=== PATIENT | male | born 1990 ===

== ENCOUNTER 2020-07-19 10:07 | Emergency (ER) | payer BC, OTHER ==
--- NOTE | 2020-07-19 10:09 | EDM.PDOC ---
ED HPI GENERAL MEDICAL PROBLEM - General Chief Complaint: Upper Extremity Injury/Pain Stated Complaint: Finger Crush Injury Time Seen by Provider: 07/19/20 10:09 Source of Information: Reports: Patient, Old Records (No [facility] records available) History Limitations: Reports: No Limitations - History of Present Illness INITIAL COMMENTS - FREE TEXT/NARRATIVE: The patient was brought to the emergency room via transport vehicle from [facility] for evaluation of a Workmen's Compensation injury, which occurred at about 9:30 AM this morning. He was working with a metal frame weighing about 90 pounds, which landed lightly on his right ring finger resulting in a small laceration and crush injury. The patient is right-handed and has not injured this finger in the past. The finger and laceration site were rinsed with tap water with dressing placed, however no other medications or treatment prior to arrival. The patient denies any chest pain/pressure, heart flutter, dizziness, orthostasis, orthopnea, diaphoresis, paresthesias, recent decreased exercise tolerance, or any other anginal-type symptoms. No recent history of abdominal pain, heartburn, nausea, diarrhea, melena, gross hematochezia, or any food intolerance, including fatty foods, etc.. The patient also denies any recent fever, cough, wheezing, dyspnea, etc.. Onset: Today, Sudden Onset Date: 07/19/20 Onset Time: 09:30 Duration: Constant Location: Reports: Upper Extremity, Right. Denies: Head, Face, Neck, Chest, Abdomen, Back, Pelvis, Upper Extremity, Left, Radiates to Quality: Reports: Same as Previous Episode, Throbbing Severity: Moderate Improves with: Reports: None Worsens with: Reports: None Context: Reports: Trauma (As above). 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 [No Known Home Meds] 07/19/20 [History] Past Medical History - Past Health History Medical/Surgical History: Denies Medical/Surgical History Cardiovascular History: Denies: Hypertension Social & Family History - Tobacco Use Tobacco Use Status *Q: Current Every Day Tobacco User Tobacco Use Within Last Twelve Months: Snuff/Dip Years of Tobacco use: 4 Packs/Tins Daily: 0.5 Used Tobacco, but Quit: No Smoking Cessation Information Provided To Patient: Yes Second Hand Smoke Exposure: Yes Source of Second Hand Smoke Exposure: Roommates use tobacco Second Hand Smoke Education Provided: Yes - Living Situation & Occupation Living situation: Reports: Single (No children), Other (Roommates) Occupation: Employed ([employer]) Review of Systems - Review of Systems Review Of Systems: Comprehensive ROS is negative, except as noted in HPI. ED EXAM, GENERAL - Physical Exam Exam: See Below Exam Limited By: No Limitations General Appearance: Alert, WD/WN, No Apparent Distress Head: Atraumatic, Normocephalic Neck: Normal Inspection, Supple, Non-Tender, Full Range of Motion. No: Lymphadenopathy (L), Lymphadenopathy (R), Thyromegaly Respiratory/Chest: No Respiratory Distress, Lungs Clear, Normal Breath Sounds, No Accessory Muscle Use, Chest Non-Tender. No: Pleural Rub, Retractions Cardiovascular: Normal Peripheral Pulses, Regular Rate, Rhythm, No Edema, No Gallop, No JVD, No Murmur, No Rub. No: Gallop/S3, Gallop/S4, Friction Rub Peripheral Pulses: 2+: Radial (L), Radial (R) GI/Abdominal: Normal Bowel Sounds, Soft, Non-Tender, No Organomegaly, No Distention, No Abnormal Bruit, No Mass, Pelvis Stable. No: Guarding (Male) Exam: Deferred Rectal (Males) Exam: Deferred Back Exam: Normal Inspection, Full Range of Motion. No: CVA Tenderness (L), CVA Tenderness (R), Muscle Spasm Extremities: Normal Range of Motion, No Pedal Edema, Normal Capillary Refill, Other (Small 0.5 cm superficial laceration secondary to crush injury over the palmar distal aspect of digit #4 right hand with no foreign body and not needing laceration repair). No: Non-Tender (Mild tenderness/palpation pain and swelling with additional mild ecchymosis over the distal phalanx of digit #4 of the right hand, including some nail involvement, however no significant subungual hematoma, crepitation, deformity, or evidence of fracture. No signif icant joint involvement. ), Pedal Edema, Joint Swelling, Kyle's Sign Neurological: Alert, Oriented, CN II-XII Intact, Normal Cognition, Normal Gait, No Motor/Sensory Deficits Psychiatric: Normal Affect, Normal Mood Skin Exam: Normal Color, No Rash, Ecchymosis (As above), Wound/Incision (As above). No: Diaphoretic Lymphatic: No Adenopathy ED TRAUMA EXTREMITY PROCEDURES - Splinting Right 4th Digit Splint Site: Digit #4 of the right hand Pre-Procedure NV Status: Normal Post-Procedure NV Status: Normal Splint Material: Aluminum-Foam (3 hole padded flexor/extensor premade finger splint) Splint Design: Other (As above) Applied & Form Fitted By: Nurse Provider Post-Splint Application NV Check: NV Status Normal, Good Position Complications: No Course - Vital Signs Last Recorded V/S: Last Vital Signs Temp 36.2 C 07/19/20 10:15 Pulse 98 07/19/20 10:15 Resp 18 07/19/20 10:15 BP 148/92 H 07/19/20 10:15 Pulse Ox 98 07/19/20 10:15 Vital Signs - 24 hr 07/19/20 10:15 Temperature [ 36.2 C Temporal] Pulse, 98 Peripheral [ Pulse Oximetry] Respiratory 18 Rate Blood Pressure 148/92 H [Left Upper Arm ] O2 Sat by Pulse 98 Oximetry - Orders/Labs/Meds Orders: Active Orders 24 hr Category Date Time Status Fingers Fourth Digit Lt F3 [CR] Stat Exams 07/19/20 10:09 Taken Durable Medical Equipment for Discharge [DME for Oth 07/19/20 10:34 Ordered Discharge] [COMM] Routine Obtain Past Medical Record [OM.PC] Routine Oth 07/19/20 10:09 Active Labs: None Meds: Medications Discontinued Medications Generic Name Dose Route Start Last Admin Trade Name Freq PRN Reason Stop Dose Admin Diphtheria/Tetanus/Acell Pertussis 0.5 ml 07/19/20 10:33 07/19/20 10:48 Boostrix IM 07/19/20 10:34 0.5 ml .ONCE ONE Administration Neomycin/Polymyxin/Bacitracin 1 each 07/19/20 10:14 07/19/20 10:48 Triple Antibiotic Oint TOP 07/19/20 10:15 1 each ONETIME ONE Administration Neomycin/Polymyxin/Bacitracin 1 each 07/19/20 10:33 07/19/20 10:48 Triple Antibiotic Oint TOP 07/19/20 10:34 1 each ONETIME ONE Administration - Radiology Interpretation Free Text/Narrative:: X-rays of digit number for the right hand, complete, shows no evidence of fracture, dislocation, foreign body, etc. Departure - Departure Time of Disposition: 11:16 Disposition: Home, Self-Care 01 Condition: Good Clinical Impression: Laceration, Tobacco abuse counseling, Crush injury, Elevated blood pressure reading - Discharge Information *PRESCRIPTION DRUG MONITORING PROGRAM REVIEWED*: Not Applicable *COPY OF PRESCRIPTION DRUG MONITORING REPORT IN PATIENT SAMMI: Not Applicable Instructions: Crush Injury of the Hand, [id number], Laceration Care, Adult, [id number], Smokeless Tobacco Information, Adult Referrals: PCP,None [Primary Care Provider] - Forms: ED Department Discharge Additional Instructions: ED HPI GENERAL MEDICAL PROBLEM - General Chief Complaint: Upper Extremity Injury/Pain Stated Complaint: Finger Crush Injury Time Seen by Provider: 07/19/20 10:09 Source of Information: Reports: Patient, Old Records (No [facility] records available) History Limitations: Reports: No Limitations - History of Present Illness INITIAL COMMENTS - FREE TEXT/NARRATIVE: The patient was brought to the emergency room via transport vehicle from [facility] for evaluation of a Workmen's Compensation injury, which occurred at about 9:30 AM this morning. The patient is right-handed and has not injured this finger in the past. The finger and laceration site was rinsed with tap water with dressing placed, however no other medications or treatment prior to arrival. The patient denies any chest pain/pressure, heart flutter, dizziness, orthostasis, orthopnea, diaphoresis, paresthesias, recent decreased exercise tolerance, or any other anginal-type symptoms. No recent history of abdominal pain, heartburn, nausea, diarrhea, melena, gross hematochezia, or any food intolerance, including fatty foods, etc.. The patient also denies any recent fever, cough, wheezing, dyspnea, etc.. Onset: Today, Sudden Onset Date: 07/19/20 Onset Time: 09:30 Duration: Constant Location: Reports: Upper Extremity, Right. Denies: Head, Face, Neck, Chest, Abdomen, Back, Pelvis, Upper Extremity, Left, Radiates to Quality: Reports: Same as Previous Episode, Throbbing Severity: Moderate Improves with: Reports: None Worsens with: Reports: None Context: Reports: Trauma (As above). 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) (As above) Right Finger-Ring Pain Score (Numeric/FACES): 7 Course - Vital Signs Last Recorded V/S: Last Vital Signs Temp 36.2 C 07/19/20 10:15 Pulse 98 07/19/20 10:15 Resp 18 07/19/20 10:15 BP 148/92 H 07/19/20 10:15 Pulse Ox 98 07/19/20 10:15 - Orders/Labs/Meds Orders: Active Orders 24 hr Category Date Time Status Vaccines to be Administered [RC] PER UNIT ROUTINE Care 07/19/20 10:34 Ordered Fingers Fourth Digit Lt F3 [CR] Stat Exams 07/19/20 10:09 Taken Bacitracin/Neomycin/Polymyxin [Triple Antibiotic Oint] Med 07/19/20 10:33 Once 1 each TOP ONETIME ONE Diphth,Pertuss(Acell),Tet Vac [Boostrix] Med 07/19/20 10:33 Once 0.5 ml IM .ONCE ONE Durable Medical Equipment for Discharge [DME for Oth 07/19/20 10:34 Ordered Discharge] [COMM] Routine Obtain Past Medical Record [OM.PC] Routine Oth 07/19/20 10:09 Active Meds: Medications Discontinued Medications Generic Name Dose Route Start Last Admin Trade Name Freq PRN Reason Stop Dose Admin Neomycin/Polymyxin/Bacitracin 1 each 07/19/20 10:14 Triple Antibiotic Oint TOP 07/19/20 10:15 ONETIME ONE Departure - Departure Condition: Good Clinical Impression: Laceration, Tobacco abuse counseling - Discharge Information *PRESCRIPTION DRUG MONITORING PROGRAM REVIEWED*: Not Applicable *COPY OF PRESCRIPTION DRUG MONITORING REPORT IN PATIENT SAMMI: Not Applicable Instructions: Crush Injury of the Hand, [id number], Laceration Care, Adult, [id number], Smokeless Tobacco Information, Adult Referrals: PCP,None [Primary Care Provider] - Forms: ED Department Discharge Sepsis Event Note (ED) - Focused Exam Vital Signs: Vital Signs Temp Pulse Resp BP Pulse Ox 07/19/20 10:15 36.2 C 98 18 148/92 H 98 - My Orders Last 24 Hours: My Active Orders 07/19/20 10:09 Fingers Fourth Digit Lt F3 [CR] Stat Obtain Past Medical Record [OM.PC] Routine 07/19/20 10:33 Bacitracin/Neomycin/Polymyxin [Triple Antibiotic Oint] 1 each TOP ONETIME ONE Diphth,Pertuss(Acell),Tet Vac [Boostrix] 0.5 ml IM .ONCE ONE 07/19/20 10:34 Vaccines to be Administered [RC] PER UNIT ROUTINE Durable Medical Equipment for Discharge [DME for Discharge] [COMM] Routine - Assessment/Plan Last 24 Hours: My Active Orders 07/19/20 10:09 Fingers Fourth Digit Lt F3 [CR] Stat Obtain Past Medical Record [OM.PC] Routine 07/19/20 10:33 Bacitracin/Neomycin/Polymyxin [Triple Antibiotic Oint] 1 each TOP ONETIME ONE Diphth,Pertuss(Acell),Tet Vac [Boostrix] 0.5 ml IM .ONCE ONE 07/19/20 10:34 Vaccines to be Administered [RC] PER UNIT ROUTINE Durable Medical Equipment for Discharge [DME for Discharge] [COMM] Routine 1. Followup with your regular provider in 10-14 days as directed for reevaluation and repeat x-ray of your fourth right finger. Bring these discharge instructions with you to that visit. 2. Tylenol 650 mg by mouth every 4 hours and/or OTC ibuprofen 2-3 tabs by mouth every 6 hours with food as directed./needed. You may stagger these medications for 48-72 hours only, which essentially means that you are receiving a pain medication about every 2 hours. 3. Antibacterial soap wash/soak with subsequent antibacterial dressing such as Neosporin, etc. as directed 2 times per day until the wound or laceration site completely heals. Keep the area clean and dry with activity restrictions as discussed. Never use hydrogen peroxide for wound care. 4. Wear finger splint at all times with exception of bathing and wound care. 5. Work excuse- See Form 6. Stop all tobacco use HUEY as directed/per provided information and consider contacting Quit LIne, etc.. 7. Immediately after this visit verify that your cellular telephone's voicemail has been activated and is empty. Also verify that your home telephone's answering machine is operating properly and has space to receive messages. Note that it is sometimes necessary for us to be able to contact you at a later date to discuss your medical care. 8. Please remember that we are ALWAYS here for you and want to answer any questions you may have. Feel free to call the hospital any time and we call you back HUEY. Sepsis Event Note (ED) - Focused Exam Vital Signs: Vital Signs Temp Pulse Resp BP Pulse Ox 07/19/20 10:15 36.2 C 98 18 148/92 H 98 - Problem List & Annotations (1) Crush injury SNOMED Code(s): 465299390 Code(s): T14.8XXA - OTHER INJURY OF UNSPECIFIED BODY REGION, INITIAL ENCOUNTER Status: Acute Priority: High Onset Date: 07/19/20 Annotation/Comment:: Minor crush injury with no evidence of fracture. [email or web address] work excuse and Workmen's Compensation forms were completed. Activity restr ictions, wound care, etc. were extensively discussed. Close follow-up by regular provider secondary to Workmen's Compensation injury. (2) Laceration SNOMED Code(s): 387304318 Code(s): LOR6240 - Status: Acute Priority: High Onset Date: 07/19/20 Annotation/Comment:: Minor laceration not requiring surgical repair as above. Wound care instructions were discussed. TDAP was given with patient not having any recent tetanus immunization. Neosporin dressing was placed by the emergency room nurse with his finger also splinted with a finger splint as above. (3) Elevated blood pressure reading SNOMED Code(s): 45474710 Code(s): R03.0 - ELEVATED BLOOD-PRESSURE READING, W/O DIAGNOSIS OF HTN Status: Acute Priority: Medium Onset Date: 07/19/20 Annotation/Comment:: Mildly elevated blood pressure today likely secondary to acute injury as above. Observe for now with no previous history of hypertension. (4) Tobacco abuse counseling SNOMED Code(s): 821197457, 241215493, [id number] Code(s): Z71.6 - TOBACCO ABUSE COUNSELING Status: Chronic Priority: Medium Annotation/Comment:: The patient was extensively counseled concerning discontinuing chewing tobacco use, including use of Nicorette gum. Tobacco cessation information was provided. - Problem List Review Problem List Initiated/Reviewed/Updated: Yes - My Orders Last 24 Hours: My Active Orders 07/19/20 10:09 Fingers Fourth Digit Lt F3 [CR] Stat Obtain Past Medical Record [OM.PC] Routine 07/19/20 10:34 Durable Medical Equipment for Discharge [DME for Discharge] [COMM] Routine - Assessment/Plan Last 24 Hours: My Active Orders 07/19/20 10:09 Fingers Fourth Digit Lt F3 [CR] Stat Obtain Past Medical Record [OM.PC] Routine 07/19/20 10:34 Durable Medical Equipment for Discharge [DME for Discharge] [COMM] Routine Assessment:: As above Plan: As above. Extensive precautions were given to the patient, who is in agreement with the treatment plan. See Patient Instructions for further treatment and plan.
[2020-07-19] MEDS ORDERED: Bacitracin/Neomycin/Polymyxin B Oint 0.9 GM U/D Packet TOP ONE ×2 (10:14→10:33)
[2020-07-19] MEDS ORDERED: Diphtheria,Pertussis(Acell),Tetanus Vaccine 0.5 ML Syringe IM ONE (10:33)
== END 2020-07-19 11:15 | disposition home or self-care (01) ==
LOC: LL.ED 10:07
DX: S67.194A Crushing injury of right ring finger, initial encounter (principal); S61.214A Laceration without foreign body of right ring finger without damage to nail, initial encounter; I10 Essential (primary) hypertension; Z71.6 Tobacco abuse counseling; Z23 Encounter for immunization; W23.0XXA Caught, crushed, jammed, or pinched between moving objects, initial encounter; Y92.89 Other specified places as the place of occurrence of the external cause; Y99.0 Civilian activity done for income or pay
CPT/HCPCS: 73140-F3; 90471; 90715; 99283; 99283-25